=== PATIENT | male | born 1980 | race Two or more races ===

== ENCOUNTER → 2025-06-29 | Outpatient (CLI) | payer BC, SELFPAY ==
--- NOTE | 2025-06-29 16:30 | XR_ITS ---
Examination: MRI thoracic spine without contrast. Date and time of exam: June 29, 2025, 1647 hours INDICATIONS: Mid left back pain radiating to the left arm one year Technique: Multiple sagittal and axial images of the thoracic spine have been obtained. T1 weighted localizer, sagittal T2 weighted images, TR 30-50, TE 148, T1 weighted sagittal images, TR 650, TE 14, T2-weighted transverse images, TR 6770, TE 142 Findings: Adequate alignment thoracic vertebral bodies on the lateral view No thoracic fracture. Normal marrow signal thoracic vertebral bodies No thoracic disc desiccation with thoracic disc narrowing Axial images demonstrate no focal thoracic disc protrusion No impingement upon the thoracic cord No enlargement thoracic cord Impression: No thoracic fracture No thoracic disc narrowing. No focal thoracic disc protrusion
== END | disposition home or self-care (01) ==
PROVIDERS: PCP Internal Medicine; Referring Provider Internal Medicine; Visit Provider Internal Medicine
DX: M54.6 Pain in thoracic spine (principal)
CPT/HCPCS: 72146